=== PATIENT | female | born 1955 | race Caucasian/White ===

== ENCOUNTER 2016-11-04 16:53 | Emergency (ER) | payer OTHER ==
[~2016-11-04] VITALS: Ht 152.4 cm; Wt 98.4 kg
[~2016-11-04 16:53] MED LIST: ADIPEX-P37.5 MG PO; ADVAIR HFA 230/1 AER INH; AMBIEN10 M1 PO; AMBIEN10 MG PO; AMLODIPINE BESYL5 MG PO; AMOXICILLIN500 MG PO; ANORO ELLIPTA1 POW IH; ANTIVERT/2525 M1 PO; ASACOL HD800 M1 PO; AUGMENTIN 875-875 MG PO; BIAXIN500 MG PO; BISOPROLOL FUMA1 TA3 PO; BISOPROLOL PO; CARTIA XT240 MG PO; CARTIA XT300 MG PO; CEFADROXIL500 M1 PO; CEPHALEXIN500 M1 PO; CIPRO500 MG PO; CLARITIN10 MG PO; CLONIDINE HCL0.1 M1 PO; CLONIDINE HCL0.2 MG PO; COZAAR100 MG PO; COZAAR50 MG PO; CYCLOBENZAPRINE10 MG PO; CYMBALTA60 M1 PO; CYMBALTA60 MG PO; DALMANE30 MG PO; DAYPRO600 M1 PO; DAYPRO600 MG PO; DIAZEPAM10 M1 PO; DIAZEPAM5 MG PO; DIFLUCAN100 MG PO; DILTIAZEM 24HR300 MG PO; DOXYCYCLINE HY100 M5 PO; DOXYCYCLINE100 M3 PO; DULOXETINE HCL60 MG PO; DUONEB 3 MG/3 ML3 M1 NEB; EES400 MG PO; ELIMITE 5%60 GM T; ESTRAC1 PO; ESTRADIOL1 MG PO; Estrace1 MG PO; FIORICET 325 MG1 TAB PO; FLEXERIL10 MG PO; FLEXERIL5 MG PO; FUROSEMIDE20 M1 PO; GABAPENTIN100 M2 PO; GLUCOTROL XL2.5 MG PO; GLUCOTROL5 MG PO; HCTZ PO; HUMALOG100 U/ML SC; HYDROCODONE BIT1 T11 PO; HYOSCYAMINE0.125 MG PO; INSULIN HUMA100 U/ML IJ; JANUVIA25 MG PO; K-Lyte/Cl25 MEQ PO; LAC-HYDRIN12% TP; LANTUS100 U/ML SC; LASIX20 MG PO; LATU60TA PO; LATU80TA PO; LIDODERM 5% PATC1 EA PO; LOMOTIL 0.025 M1 TA1 PO; LOTRISONE 0.05%15 GM PO; MAPAP325 MG PO; MEDROL DOSEPAK4 MG PO; MUCINEX ER600 MG PO; MYCOLOG CREAM 115 GM PO; NICOTROL 10MG I1 BOX INH; NORCO 10-325 T1 EACH PO; NORCO 325 MG-7.1 TAB PO; NORCO 7.5-3251 EACH PO; NOVOLOG FLEX100 U/ML SC; NULEV0.125 M1 PO; OMEPRAZOLE20 MG PO; ONGLYZA5 MG PO; ORASONE10 MG PO; OXYGEN NAS; OYSTER SHELL CA PO; OYSTER SHELL CA1 TA4 PO; PERCOCET 325 MG1 TA2 PO; PERCOCET 325 MG1 TA7 PO; PHENERGAN W/ DE30 ML PO; PLAVIX75 M1 PO; PRAVACHOL40 MG PO; PREDNICOT10 MG PO; PREDNICOT20 MG PO; PREDNISONE10 MG PO; PREDNISONE20 MG PO; PREDNISONE50 MG PO; PRILOSEC20 MG PO; SINGULAIR10 M1 PO; SINGULAIR10 MG PO; SYMBICORT1 AE1 INH; TANZEUM30 MG SC; THEO-24100 MG PO; THEOPHYLLINE A200 MG PO; TRAZADONE HYDR100 MG PO; TRAZODONE100 MG PO; TRAZODONE150 MG PO; TRICOR145 MG PO; TUSSI-ORGANIDI120 ML PO; ULTRAM50 MG PO; VALIUM10 MG PO; VALTREX1 GM PO; VENTOLIN H0.09 MG/AC IH; VENTOLIN H0.09 MG/AC INH; VENTOLIN0.09 MG/AC IH; VIBRAMYCIN100 MG PO; VICO75300 PO; VICODIN 5-3001 EACH PO; VICODIN 5/500 505 MG PO; VICODIN 500 MG-1 TAB PO; VISTARIL50 MG PO; VITAMIN D50000 IU PO; VITAMINS FOR HA1 CAP PO; VOLTAREN50 M1 PO; ZEBETA10 MG PO; ZETIA10 MG PO; ZIAC 2.5 MG-6.25 MG PO; ZITHROMAX Z PA250 MG PO; ZITHROMAX250 MG PO; ZOFRAN ODT4 MG SL; ZOLOFT100 MG PO; ZYRTEC10 MG PO; [UNRECOGNIZED DRUG - OTHER] PO; [UNRECOGNIZED DRUG - REMARK]
[2016-11-04 17:18] VITALS: BP 129/82
[2016-12-04] MEDS ORDERED: NORCO 5-325 TA1 EACH PO (22:17)
== END 2016-11-04 18:05 | disposition home or self-care (01) ==
LOC: ED 16:53
DX: G89.29 Other chronic pain (principal); M54.42 Lumbago with sciatica, left side; F17.200 Nicotine dependence, unspecified, uncomplicated; Z90.710 Acquired absence of both cervix and uterus; Z90.49 Acquired absence of other specified parts of digestive tract; Z98.890 Other specified postprocedural states; Z96.653 Presence of artificial knee joint, bilateral; Z91.041 Radiographic dye allergy status; Z88.6 Allergy status to analgesic agent; Z88.1 Allergy status to other antibiotic agents; Z88.8 Allergy status to other drugs, medicaments and biological substances

== ENCOUNTER → 2017-01-27 | Outpatient (CLI) | payer OTHER ==
[~2017-01-27] MED LIST changes: +NORCO 5-325 TA1 EACH PO
== END | disposition home or self-care (01) ==
LOC: MAMMO 13:49
DX: Z12.31 Encounter for screening mammogram for malignant neoplasm of breast (principal); M25.511 Pain in right shoulder; R20.0 Anesthesia of skin; Z91.81 History of falling

== ENCOUNTER → 2017-02-04 | Outpatient (CLI) | payer OTHER ==
[~2017-02-04] MED LIST changes: +ATROVENT I0.5 MG/2.1 INH; +BREO ELLIPTA 11 EACH IH; +LEVSIN0.125 M2 PO; +LOTRISONE30 ML PO; +MECLIZINE HCL25 M2 PO; +MULTI VITAMINS1 TAB PO; +NEURONTIN300 MG PO; +Oscal,Oyster S500 MG PO; +ZIAC 5 MG-6.25 MG PO
--- NOTE | ~2017-02-04 | ST ---
[place], [place] EXERCISE STRESS TEST REPORT [id number] UNIT #: [id number] ROOM: DOCTOR: CECELIA STONER MD BIRTHDATE: [birth year] DOS: 02/04/2017 PHARMACOLOGIC STRESS TEST INDICATIONS: Paroxysmal atrial fibrillation and central chest pain. PROCEDURE: The patient was given a rapid infusion of regadenoson 0.4 mg intravenously followed by a saline flush. She experienced no symptoms with the infusion. Her resting heart rate of 77 tarsha to 88. The resting blood pressure of 148/80 fell to 138/72. Her EKG showed sinus rhythm and was a normal tracing throughout the examination. IMPRESSION: 1. Well tolerated infusion of regadenoson. 2. Radionuclide administered 40 seconds after the infusion of regadenoson. Please see the separate myocardial perfusion report regarding the results of the stress test. CECELIA STONER MD CM:STRESS:EXERCISE STRESS TEST REPORT [id number] CECELIA STONER MD
== END | disposition home or self-care (01) ==
LOC: CARD 00:56
DX: I11.0 Hypertensive heart disease with heart failure (principal); I50.9 Heart failure, unspecified; E11.9 Type 2 diabetes mellitus without complications; J44.9 Chronic obstructive pulmonary disease, unspecified; E78.01 Familial hypercholesterolemia; R06.00 Dyspnea, unspecified

== ENCOUNTER 2017-02-18 17:53 | Emergency (ER) | payer OTHER ==
[~2017-02-18] VITALS: Wt 90.7 kg
--- NOTE | ~2017-02-18 | EKG ---
[place], [place] ELECTROCARDIOGRAM REPORT NAME: LIA GIL UNIT #: [id number] ROOM: DOCTOR: CECELIA STONER MD BIRTHDATE: [birth year] DOS: 02/18/2017 TIME: 19:06 Normal sinus rhythm with rightward axis, rate of 86, probable left atrial enlargement, nonspecific T-wave abnormalities, abnormal electrocardiogram. CECELIA STONER MD CM:EKGRPT:ELECTROCARDIOGRAM REPORT [id number] [id number] CECELIA STONER MD
[2017-02-18] MEDS ORDERED: OXYGEN NAS (18:03)
[2017-02-18 19:02] LABS: BASO % 0.2 % (0.0-1.0); EOS % 0.2 % (1.0-4.0); HEMATOCRIT 39.7 % (37.0-47.0); HEMOGLOBIN 12.7 g/dl (12.0-16.0); IG # 0.1 10*3/uL (0.0-0.1); LYMPH # 1.2 10*3/uL (1.3-4.4); LYMPH % 12.2 % (27.0-41.0); MEAN CELL VOLUME 87.4 fl (81.0-99.0); MEAN PLATELET VOLUME 10.2 fl (9.6-12.3); MONO # 0.4 10*3/uL (0.1-1.0); MONO % 3.9 % (3.0-9.0); NEUT # 8.4 10*3/uL (2.3-7.9); PLATELET COUNT AUTOMATED 228 10*3/uL (130-400); RED BLOOD COUNT 4.54 10*6/uL (4.10-5.10); RED CELL DISTRI WIDTH 12.7 % (0-14.5); WHITE BLOOD COUNT 10.1 10*3/uL (4.8-10.8)
[2017-02-18 19:13] LABS: INTERNATIONAL NORM RATIO 0.9 (2.0-3.5)
[2017-02-18 19:19] LABS: ALBUMIN 2.6 gm/dl (3.1-4.5); ALKALINE PHOSPHATASE 123 U/L (45-117); BILIRUBIN, TOTAL 0.2 mg/dl (0.2-1.0); BUN 5 mg/dl (7-24); C-REACTIVE PROTEIN 0.91 MG/DL (0-0.3); CARBON DIOXIDE 38 mmol/L (21-32); CHLORIDE 96 mmol/L (98-107); CKMB 2.7 ng/ml (0.5-3.6); CPK 53 U/L (26-192); EST GLOM FILT AFRICAN AMERICAN > 60 ml/min; GLUCOSE 173 mg/dL (65-99); MAGNESIUM 1.8 mg/dL (1.5-2.1); POTASSIUM 3.9 mmol/L (3.5-5.1); SGOT/AST 14 IU/L (3-35); SGPT/ALT 11 U/L (12-78); SODIUM 143 mmol/L (136-145); TOTAL PROTEIN 6.3 gm/dL (6.4-8.2); TROPONIN I 0.027 ng/ml (<0.045)
[2017-02-18 19:39] VITALS: BP 164/92
[2017-02-18] MEDS ORDERED: DOXYCYCLINE100 M3 PO (20:08)
[2017-02-18] MEDS ORDERED: PREDNISONE10 MG PO (20:08)
== END 2017-02-18 20:19 | disposition left against medical advice (07) ==
LOC: ED 17:53
PROVIDERS: Registered Nurse
DX: G89.4 Chronic pain syndrome (principal); J44.1 Chronic obstructive pulmonary disease with (acute) exacerbation; E11.65 Type 2 diabetes mellitus with hyperglycemia; Z99.81 Dependence on supplemental oxygen; Z87.891 Personal history of nicotine dependence; Z79.4 Long term (current) use of insulin; Z79.899 Other long term (current) drug therapy; Z90.49 Acquired absence of other specified parts of digestive tract; Z88.1 Allergy status to other antibiotic agents; Z88.6 Allergy status to analgesic agent; Z88.8 Allergy status to other drugs, medicaments and biological substances; Z91.041 Radiographic dye allergy status

== ENCOUNTER → 2017-04-02 | Outpatient (CLI) | payer OTHER | END | disposition home or self-care (01) | LOC: RAD 12:53 | DX: J43.9 Emphysema, unspecified (principal); I50.9 Heart failure, unspecified; J45.909 Unspecified asthma, uncomplicated; Z72.0 Tobacco use; Z99.81 Dependence on supplemental oxygen; Z92.0 Personal history of contraception ==

== ENCOUNTER 2017-04-16 19:55 | Emergency (ER) | payer OTHER ==
[~2017-04-16] VITALS: Ht 152.4 cm; Wt 104.3 kg
[2017-04-16 20:17] VITALS: BP 149/79
== END 2017-04-16 21:26 | disposition home or self-care (01) ==
LOC: ED 19:55
DX: S30.0XXA Contusion of lower back and pelvis, initial encounter (principal); G89.29 Other chronic pain; M19.90 Unspecified osteoarthritis, unspecified site; J44.9 Chronic obstructive pulmonary disease, unspecified; E78.5 Hyperlipidemia, unspecified; E11.65 Type 2 diabetes mellitus with hyperglycemia; Z79.4 Long term (current) use of insulin; I11.0 Hypertensive heart disease with heart failure; I50.32 Chronic diastolic (congestive) heart failure; F17.200 Nicotine dependence, unspecified, uncomplicated; Z79.899 Other long term (current) drug therapy; Z91.041 Radiographic dye allergy status; Z88.1 Allergy status to other antibiotic agents; Z88.6 Allergy status to analgesic agent; Z88.8 Allergy status to other drugs, medicaments and biological substances; W18.39XA Other fall on same level, initial encounter; Y93.89 Activity, other specified; Y92.89 Other specified places as the place of occurrence of the external cause; Y99.8 Other external cause status

== ENCOUNTER 2017-04-22 18:35 | Emergency (ER) | payer OTHER ==
[~2017-04-22] VITALS: Ht 152.4 cm; Wt 104.3 kg
[2017-04-22 18:39] VITALS: BP 108/53
[2017-04-22] MEDS ORDERED: CLINDAMYCIN HC300 MG PO (21:06)
== END 2017-04-22 21:16 | disposition home or self-care (01) ==
LOC: ED 18:35
DX: L03.116 Cellulitis of left lower limb (principal); Z90.49 Acquired absence of other specified parts of digestive tract; Z87.891 Personal history of nicotine dependence; Z96.653 Presence of artificial knee joint, bilateral; Z79.4 Long term (current) use of insulin; Z79.899 Other long term (current) drug therapy; Z88.1 Allergy status to other antibiotic agents; Z88.6 Allergy status to analgesic agent; Z91.041 Radiographic dye allergy status

== ENCOUNTER → 2017-05-21 | Outpatient (CLI) | payer OTHER ==
[~2017-05-21] MED LIST changes: +CLINDAMYCIN HC300 MG PO
== END | disposition home or self-care (01) ==
LOC: RAD 08:57
DX: M47.817 Spondylosis without myelopathy or radiculopathy, lumbosacral region (principal); M43.8X4 Other specified deforming dorsopathies, thoracic region

== ENCOUNTER → 2017-06-06 | Outpatient (CLI) | payer OTHER ==
--- NOTE | ~2017-06-06 | PR ---
[place], [place] PROGRESS NOTE NAME: LIA IGL UNIT #: [id number] ROOM: DOCTOR: AL CALLEJAS DPM BIRTHDATE: [birth year] DOS: 06/06/2017 SUBJECTIVE: This is a new patient to me, but she had been seen at [facility] previously. She is here for a new complaint. She had a fall several days ago on her left leg. She hit a chest of drawers. Since then, she has not been applying any sort of dressing to the area. She has been keeping it open, stated there was a lot of drainage and some blood when the initial injury occurred. Currently, she has multiple wounds on the left lower leg, first of which is left knee, which measures 4.7 cm x 3.5 cm x 0.1 cm. This is eschar and devitalized tissue covered. It was debrided through subcutaneous with 15 blade to remove all devitalized and necrotic tissue. The patient tolerated this procedure well. Post-debridement measurements are the same. Second wound, left lower leg proximal, measures 3.3 cm x 2.2 cm x 0.1 cm. No debridement was performed at this wound. The base is superficial, beefy red. On the left lower leg wound, there is a measurement of 3.9 cm x 3.4 cm x 0.1 cm. Again, this area is beefy red and no debridement was performed in this region. Left lower leg distal wound is 1.3 cm x 1.5 cm x 0.5 cm. This wound is also clear, no debridement was performed. No signs of infection or other abnormalities noted. IMPRESSION: Traumatic ulcerations as described above on the left lower leg, all stable and uninfected. PLAN: 1. Evaluate. 2. We will use Adaptic, Aquacel Ag or Maxorb Ag to the areas with dry dressing, changed every day. The [facility] 1 week for this complaint. She is to call if any problems arise in the meantime. AL CALLEJAS DPM CM:PNTRANS [id number] AL CALLEJAS DPM 06/06/17 1321 interface
== END | disposition home or self-care (01) ==
LOC: WOUNDCARE 10:09
DX: I87.332 Chronic venous hypertension (idiopathic) with ulcer and inflammation of left lower extremity (principal); L97.222 Non-pressure chronic ulcer of left calf with fat layer exposed

== ENCOUNTER 2017-06-22 00:12 | Inpatient (IN) | payer OTHER ==
[2017-06-22] VITALS (9 sets, daily range): BP systolic 115–136; BP diastolic 56–107
[~2017-06-22] VITALS: Ht 152.4 cm; Wt 106.1 kg
--- NOTE | ~2017-06-22 | PR ---
[place], [place] PROGRESS NOTE NAME: LIA GIL UNIT #: [id number] ROOM: 401 DOCTOR: JOHN GRANDA DO BIRTHDATE: [birth year] DOS: 06/26/2017 SUBJECTIVE: The patient was seen and evaluated today with Dr. Olvera. The patient is alert, awake, responsive. No nausea, vomiting, diarrhea, lightheadedness, dizziness, or chest pain. The patient's shortness of breath has resolved. The patient denies any other complaints. OBJECTIVE: VITAL SIGNS: Temperature 97.8, pulse 81, respiratory rate 20, blood pressure 152/81, pulse ox is 99 on 3 liters nasal cannula. HEENT: Shows no change. NECK: Supple. CARDIOVASCULAR: S1, S2 audible. LUNGS: Moderate decrease in breath sounds. No wheezing or crackles noted. ABDOMEN: Soft, nontender, nondistended. EXTREMITIES: Shows mild trace edema. LABORATORY DATA: CBC: White cell count of 8.2, hemoglobin of 11.7. Glucose of 210, BUN 23, creatinine 0.89. ASSESSMENT: 1. Acute tracheobronchitis with chronic respiratory failure. 2. Chronic obesity. 3. Metabolic encephalopathy, resolved. 4. History of nicotine dependence. 5. Type 2 diabetes with hyperglycemia. 6. Diastolic congestive heart failure, resolving. PLAN: 1. The patient can be discharged on doxycycline 100 mg b.i.d. for 5 days. 2. Continue usual and supportive care. SNF consult. JOHN GRANDA DO [place], [place] PROGRESS NOTE NAME: LIA GIL UNIT #: [id number] ROOM: 401 DOCTOR: JOHN GRANDA DO BIRTHDATE: [birth year] NIGHAT OLVERA MD CM:PNTRANS [id number] JOHN GRANDA DO 06/26/17 1028 interface
--- NOTE | ~2017-06-22 | PR ---
[place], [place] PROGRESS NOTE NAME: LIA GIL UNIT #: [id number] ROOM: 401 DOCTOR: WADE FISCHER MD,NIGHAT BIRTHDATE: [birth year] DOS: 06/24/2017 PULMONARY FOLLOWUP SUBJECTIVE: The patient has been noted comfortable at this time. Shortness of breath and other symptom has been gradually subsiding. There were no symptoms of chest pain. She has not used the BiPAP over the last 24 hours. She does not wish to use the BiPAP. Denies symptoms of chest pain. Edema of lower extremity the patient has been still noted, but decreased. OBJECTIVE: VITAL SIGNS: Normal temperature, respiratory rate 20, heart rate 94, blood pressure 127/67. Intake for this patient was recorded as 2400 mL over 4600 mL, negative fluid balance over 2 liters. The pulse oxygen saturation for the patient was noted as 99% saturation on 2 liters nasal cannula. HEENT: Examination shows no new change. NECK: Supple. CARDIOVASCULAR: S1, S2 audible. LUNGS: Show moderate decreased breath sounds noted in the lungs bilaterally. Scattered wheezing. ABDOMEN: Soft, nontender. Bowel sounds present. EXTREMITIES: Noted as [id number] edema still noted in the lower extremities. LABORATORY DATA: BMP this morning, glucose 303. BUN and creatinine was normal. Sodium 134. Carbon dioxide 36. CBC was noted as a WBC count of 8.1, hemoglobin 11.1, hematocrit 35.5 with a platelet count is normal. Echocardiogram that was done on 06/23/2017 reported by the radiologist as evidence of normal left ventricle symmetrical wall motion, grade 2 pseudonormalization filling dynamics the patient was also described. Left ventricular ejection fraction was noted as normal with findings of LVH. IMPRESSION: 1. The patient was currently noted with resolving acute on chronic hypoxic respiratory failure, history of chronic hypoxia. 2. Acute congestive heart failure with diastolic dysfunction, resolving as well. 3. Type 2 diabetes mellitus and hyperglycemia. PLAN OF MANAGEMENT: Discontinue the dose of Solu-Medrol to 30 mg Solu-Medrol b.i.d. Discontinue the BiPAP because of noncompliance. Titrate oxygen 90% or greater. Continue diuretic therapy. Monitoring BUN and creatinine and other labs. Usual care. All other supportive therapy, plan of management, care and treatments. ADDENDUM The patient was independently seen and examined, [id number] encounter. History and physical examination confirmed. The level was confirmed. Decision and management were personally made. Any changes in the treatment personally [place], [place] PROGRESS NOTE NAME: LIA GIL UNIT #: [id number] ROOM: [facility] DOCTOR: NIGHAT GARCIA MD BIRTHDATE: [birth year] done. The note done by the medical dermatologist was approved as well. NIGHAT OLVERA MD CM:FERNIE [id number] NIGHAT FISCHER MD 06/25/17 0105 interface
--- NOTE | ~2017-06-22 | EKG ---
[place], [place] ELECTROCARDIOGRAM REPORT NAME: LIA GIL UNIT #: [id number] ROOM: [facility] DOCTOR: WADE FISCHER MD,NIGHAT BIRTHDATE: [birth year] DOS: 06/22/2017 TIME: 2:01 a.m. Normal sinus rhythm were noted with a heart rate of 92 beats per minute. Nonspecific ST-T changes were noted. Nonspecific intraventricular conduction delay, the patient was also noted. Poor R wave progression was noted. NIGHAT OLVERA MD CM:EKGRPT:ELECTROCARDIOGRAM REPORT 1200 1801 NIGHAT FISCHER MD
--- NOTE | ~2017-06-22 | PR ---
[place], [place] PROGRESS NOTE NAME: LIA GIL UNIT #: [id number] ROOM: 401 DOCTOR: NIGHAT GARCIA MD BIRTHDATE: [birth year] DOS: 06/26/2017 SUBJECTIVE: This progress note done by the biomedical engineering technologist. The patient was independently seen and examined with [id number] encounter. Physical examination performed. History was confirmed. The labs were reviewed. Agreed with the note which was done by the biomedical engineering technologist as well. The patient has been showing reduction of the respiratory symptoms, still noted with severe debility. She would like to be discharged home. She refused to go to long term facility, understanding the risks and benefits of such decision. OBJECTIVE: VITAL SIGNS: She remains afebrile. The blood pressure noted mildly elevated at 152/81. CHEST: Auscultation was noted with minimal wheezing. ABDOMEN: Soft and obese. LABORATORY DATA: BMP: Glucose 255. CO2 was 42. Chloride of 90. Respiratory limited ____ this patient was noted as negative. IMPRESSION: 1. The patient who has been noted with gradual resolution of the acute on chronic hypercapnic and hypoxic with acute on chronic hypoxic respiratory failure with history of chronic hypoxic respiratory failure. 2. Metabolic alkalosis secondary to chronic hypercarbia. 3. Resolving tracheobronchitis, progressive. 4. Severe debility secondary to underlying acute exacerbation of chronic obstructive pulmonary disease. 5. Moderately uncontrolled diabetes mellitus. PLAN OF TREATMENT: If the patient wishes to be discharged home today, she could be assessed for home discharge with home health nursing staff. Physical therapy and occupation therapy arrangement. We will use a tapering dose of prednisone and oral antibiotics. [place], [place] PROGRESS NOTE NAME: LIA GIL UNIT #: [id number] ROOM: 401 DOCTOR: NIGHAT GARCIA MD BIRTHDATE: [birth year] NIGHAT OLVERA MD CM:PNTRANS [phone] NIGHAT FISCHER MD 06/26/171831 interface
--- NOTE | ~2017-06-22 | PR ---
[place], [place] PROGRESS NOTE NAME: LIA GIL UNIT #: [id number] ROOM: 401 DOCTOR: NIGHAT GARCIA MD BIRTHDATE: [birth year] DOS: 06/25/2017 SUBJECTIVE: The patient was independently seen [id number] in encounter today. Assessment was performed, symptoms were confirmed and physical examination performed. The labs were reviewed. The assessment and management had been changed. The patient was personally made for this patient for today's visit. The note done by the medical cash poster, was approved. The patient has been transferred to telemetry floor at this time, noted with reduction of respiratory symptom. She was still noted with generalized or debility with inability to ambulate by herself. She was transferring from bed to the chair with the help of physical therapy, which has been noted ongoing. PHYSICAL EXAMINATION: VITAL SIGNS: Temperature noted as normal, respiratory rate of 18, heart rate 82, blood pressure 154/74. Pulse oxygen saturation 3 liters 100% saturation. RESPIRATORY: The auscultation of the chest was noted with mild to moderate decreased breath sounds, mild expiratory wheezing. There were no crackles. ABDOMEN: Soft, nontender and obese. EXTREMITIES: Still shows mild edema. LABORATORY DATA: CBC essentially noted with mild anemia for today's lab. The BMP noted glucose 279 with a CO2 of 37. IMPRESSION: The patient with resolving acute on chronic hypoxic respiratory failure, chronic hypercapnia with acute exacerbation of chronic obstructive pulmonary disease, severe or debility with decreased ambulation. The patient was recommended about assessment for the correction facility for rehabilitation purposes prior to final home discharge consideration. She was resisting to consider that. I would like to be discharged home. From the pulmonary standpoint, arrangement of discharge could be made for the patient in the next 24 hours to the home if that is the patient where she is, which is not going to be a better option. PLAN OF TREATMENT: Other treatment plan to be continued previously in progress. [place], [place] PROGRESS NOTE NAME: LIA GIL UNIT #: [id number] ROOM: 401 DOCTOR: NIGHAT GARCIA MD BIRTHDATE: [birth year] NIGHAT OLVERA MD CM:PNTRANS 6 [phone] NIGHAT FISCHER MD 06/26/17219 interface
--- NOTE | ~2017-06-22 | CON ---
[place], [place] REPORT OF CONSULTATION NAME: LIA GIL UNIT #: [id number] ROOM: [facility] DOCTOR: NIGHAT GARCIA MD BIRTHDATE: [birth year] DOS: 06/22/2017 PULMONARY CONSULTATION EVALUATION AND MANAGEMENT CONSULTATION REQUESTED BY: Hospitalist services. REASON FOR CONSULTATION: Assessment of the acute respiratory failure. HISTORY OF PRESENT ILLNESS: A 61-year-old white female known to me with past history of COPD and others, presented to the hospital Emergency Room and admitted to the hospital early this morning. The patient stated that she has been developing progressive increased shortness of breath, which was occurring with minimal exertion, using her oxygen supplementation at home. She was also noted with progressive cough with chest congestion and small amount of sputum expectoration at times. The patient denies symptoms of chest pain or hemoptysis. Wheezing with the patient occurring progressively with the chest tightness. The patient came into the Emergency Room as the patient fell down at home. She has been assessed in the Emergency Room for unresponsiveness. The diagnosis of acute cerebral infarction was excluded. She has been currently admitted to the Intensive Care Unit for further medical management. She was noted significant shortness of breath with wheezing as well. Denies any symptoms of chest pain at this time. REVIEW OF SYSTEMS: CONSTITUTIONAL: The patient has been noted symptoms of fatigue and tiredness. Denies any symptoms of fever or chills. EYES: Denies any burning, redness, or tenderness. EARS, NOSE, THROAT: No sore throat, hoarseness, otalgia, postnasal drainage. CARDIOVASCULAR: The patient was noted with edema of the lower extremities, which has noted recently worsened. Denies any symptoms of pain in the lower extremity. Denies symptoms of palpitations or anginal pain. GASTROINTESTINAL: Denies dysphagia, nausea, vomiting, diarrhea, abdominal pain, hematemesis, melena, or abnormal weight loss history recently. SKIN: Some area of bruising of the skin noted, most likely medication related, but there were no abnormal rashes or lesions. MUSCULOSKELETAL: Denies acute joint pain, redness, or tenderness. GENITOURINARY: Denies dysuria, suprapubic pain, hematuria or flank pain. CENTRAL NERVOUS SYSTEM: No dizziness, headache, diplopia, syncopal episodes or seizures. Remaining systems were reviewed and they were noted all negative. PAST MEDICAL HISTORY: Noted with: 1. History of centrilobular emphysema. 2. Chronic hypoxic respiratory failure with use of oxygen 3 L p.m. 3. History of ulcerative colitis and Crohn's disease. 4. Essential hypertension. 5. Moderate obesity. 6. Anxiety disorder. 7. History of neurotic depression. [place], [place] REPORT OF CONSULTATION NAME: LIA GIL UNIT #: [id number] [place] [facility] [place]CTOR: BEAU GARCIA MDM BIRTHDATE: [birth year] 8. History of uterine cancer. 9. Type 2 diabetes mellitus. 10. Osteoarthritis. PAST SURGICAL HISTORY: Noted as: 1. Complete hysterectomy in 1996. 2. Cholecystectomy. 3. Bilateral total knee replacement. 4. Appendectomy. 5. Removal of ganglion cyst of the left wrist. 6. Colonoscopy. 7. Fiberoptic bronchoscopy which was therapeutic in the past. 8. Repair of the tendon or the ankles. SOCIAL HISTORY: The patient is , does live with boyfriend. She has 4 children. Smoking noted since age of 88 years old with intermittent continued tobacco use, different amount, half pack to a pack of cigarettes per day. There was no history of alcohol or illicit drug use. FAMILY HISTORY: The patient's father at the age of 75 years with complication of heart problem. Mother at the age of 70+ years old with complications related to GI cancer. MEDICATIONS: Current administered medications noted use of Protonix, IV Lasix, potassium chloride, sliding scale insulin coverage, IV Solu-Medrol 60 mg b.i.d., Lovenox for DVT prophylaxis, DuoNeb q.4h., IV Rocephin, Ambien, azithromycin, and other p.r.n. medications were administered. DRUG ALLERGIES: Noted: 1. IVP DYE. 2. LISINOPRIL. 3. PAXIL. 4. TRAMADOL. 5. TORADOL. 6. MOXIFLOXACIN. 7. LEXAPRO. 8. LYRICA. PHYSICAL EXAMINATION: GENERAL: A 61-year-old female has been noted currently awake and alert. VITAL SIGNS: Height of 5 feet 4 inches, weight of 234 pounds, BMI 45. The vital signs for the patient which has been recorded showed normal temperature since admission, respiratory rate 16-22, heart rate 65-70, blood pressure 115/75-136/58. Pulse oxygen saturation of the patient noted on 3 liters nasal cannula 94% saturation. HEENT: Examination shows head was atraumatic. Eyes nonicterus. NECK: Supple. CARDIOVASCULAR: S1, S2 audible. LUNGS: Diffuse expiratory wheezing in the lungs were noted bilaterally. There were no crackles heard. [place], [place] REPORT OF CONSULTATION NAME: LIA GIL UNIT #: [id number] [place]OM: [facility] DOCTOR: WADE FISCHER MD,NIGHAT BIRTHDATE: [birth year] ABDOMEN: Soft, nontender. EXTREMITIES: Shows 2-3+ pitting edema at this time. SKIN: Shows small area of bruising, most likely related to medications. There were no abnormal rashes or lesions. CENTRAL NERVOUS SYSTEM: Cranial nerves 2-12 intact. No focal deficits. MUSCULOSKELETAL: There were no acute deformities seen. LABORATORY DATA: Lactic acid on 06/22/2017 was 2.5. CBC on 06/22/2017, hemoglobin 11.5, hematocrit 35.6, WBC count normal, platelet count was normal. The PT/INR was noted as normal on 06/22/2017. CMP on 06/22/2017, normal BUN and creatinine. Potassium 2.7. Carbon dioxide 34. Arterial blood gas; pH is 7.37, pCO2 of 62, pO2 of 40.9 on [address] scan of the head this morning was done for this patient was noted without any acute intracranial pathologies. The urine drug screen was noted positive for benzodiazepines and opiates. The troponin for the patient noted normal. Chest x-ray 1 view does not show any acute pulmonary pathology. CT scan of the chest without contrast, which was done this morning was personally reviewed, shows 6 mm nodule noted in the ____ of the right upper lung for this patient. The nodule was not seen as the CT scan of 01/26/2015 was personally reviewed and noted to be absent. Another 2 mm nodule for the patient was described in the right lower lobe and other 2 mm nodule was described in the left upper lobe as well. Again, the nodule of the left upper lobe and the right lower lobe were all noted new as well. IMPRESSION: The patient who has been currently admitted to the hospital noted with: 1. Acute on chronic hypoxic respiratory failure as a result of acute exacerbation of chronic obstructive pulmonary disease. 2. Chronic nicotine dependence. 3. History of cancer of the uterus many years ago for this patient without any known recurrence of the current nodules which are present. The differential diagnosis would include possibility of metastatic cancer for this patient versus a benign finding such as intraparenchymal lymph nodes. 4. History of chronic morbid obesity as well. 5. Severe hyperkalemia was also noted as well. 6. Possibility of acute congestive heart failure with diastolic or systolic dysfunction needs to be further defined with additional assessment. 7. Anxiety disorder and depression. PLAN OF MANAGEMENT: At this time, the patient has been started on intravenous Solu-Medrol and will be continued on same dose with frequent bronchodilators. Because of the current severe wheezing and other respiratory difficulty, she was suggested to use the BiPAP. Initially, the patient refused to use the BiPAP and later on would like to use it. She will be started on BiPAP of 14/8. Maintain the saturation with that 92%. The BiPAP will be used intermittently during the daytime to stabilize the respiratory status and continue at nighttime. Because of suspicion of obstructive sleep apnea disorder, the BiPAP would also help for that reason. Tobacco cessation was addressed with the patient. The patient is getting already diuretic therapy. The supplementation potassium noted in progress. Additional treatment changes will be suggested based on the progression of the illness. Obtain the sputum for Gram stain and culture for [place], [place] REPORT OF CONSULTATION NAME: LIA GIL UNIT #: [id number] [place]: [facility] DOCTOR: NIGHAT GARCIA MD BIRTHDATE: [birth year] this patient for the tracheobronchitis. Pulmonary nodule assessment to be done with a followup CT scan of the chest to be done in about 3-6 months for reassessment of pulmonary nodules in progression. If there is a localized infection, it should resolve. Other supportive therapy, plan of management and care. Usual treatment, other supportive plan of management and therapies. Thanks for allowing me to participate in the care of this patient. NIGHAT OLVERA MD CM:CONSTR:REPORT OF CONSULTATION 1543 06/23/17 1342 interface
--- NOTE | ~2017-06-22 | PR ---
[place], [place] PROGRESS NOTE NAME: LIA GIL UNIT #: [id number] ROOM: [facility] DOCTOR: NIGHAT GARCIA MD BIRTHDATE: [birth year] DOS: 06/23/2017 SUBJECTIVE: She has been noted without any acute distress at the present time. She denies symptoms of chest pain or any abdominal pain. The respiratory symptoms had been decreased yesterday. She has used the BiPAP that was ordered yesterday resulting in reduction in respiratory symptoms. This morning, she was seen, she was sitting on the chair. OBJECTIVE: VITAL SIGNS: Showed normal temperature, respiratory rate 20, heart rate 94, blood pressure 146/74. Pulse oxygen saturation noted on 3 L nasal canula 98% saturation. HEENT: Showed no acute change. NECK: Supple. CARDIOVASCULAR: S1, S2 audible. LUNGS: The patient was noted without any wheezing or crackles at the present time. ____ noted generally diminished bilaterally. ABDOMEN: Soft and nontender. LABORATORY DATA: The patient's CMP today, glucose 300, BUN and creatinine normal, and sodium 134. CBC, mild anemia, otherwise normal. IMPRESSION: 1. The patient who has been currently noted with reduction and improvement in the respiratory symptoms, with acute tracheobronchitis as well as acute on chronic hypoxic respiratory failure. 2. Chronic obesity. 3. Change in mental status, resolving. 4. History of nicotine dependence. PLAN OF TREATMENT: Continue use of BiPAP with oxygen supplementation, bronchodilators, and use of corticosteroids. Other supportive therapy, plan and management and care. Additional treatment changes need to be made for the patient based on the progression of the illness. [place], [place] PROGRESS NOTE NAME: LIA GIL UNIT #: [id number] ROOM: [facility] DOCTOR: NIGHAT GARCIA MD BIRTHDATE: [birth year] NIGHAT OLVERA MD CM:PNTRANS [phone] NIGHAT FISCHER MD 06/24/17249 interface
--- NOTE | ~2017-06-22 | PR ---
[place], [place] PROGRESS NOTE NAME: LIA GIL UNIT #: [id number] ROOM: 401 DOCTOR: JOHN GRANDA DO BIRTHDATE: [birth year] DOS: 06/24/2017 SUBJECTIVE: The patient was seen and evaluated today. The patient is alert, awake and responsive. No nausea, vomiting, diarrhea, lightheadedness, dizziness or chest pain. The patient states that her shortness of breath has improved since yesterday. In the patient's rest, change in mental status has resolved. The patient knows the location, month, date. The patient states she did not use BiPAP last night. The patient states she continues to have cough with yellow sputum. OBJECTIVE: VITAL SIGNS: Temperature 98.3, pulse 94, respiratory rate 20, blood pressure 127/67, pulse ox 99% on 3 liters nasal cannula. HEENT: Showed no changes. NECK: Supple. CARDIOVASCULAR: S1, S2 audible. LUNGS: There was no wheezing or crackles at this time. Lungs were noted diminished bilaterally at the bases. ABDOMEN: Soft, nontender. LABORATORY DATA: White cell count of 8.1, hemoglobin 11.1, platelet count 186. Chemistry: Sodium 134, potassium 4.1, creatinine 0.85, BUN 17. IMPRESSION: 1. Acute tracheobronchitis with chronic hypoxic respiratory failure. 2. Chronic obesity. 3. Metabolic encephalopathy, resolved. 4. History of nicotine dependence. PLAN: 1. Continue the use of BiPAP. 2. Continue bronchodilator, corticosteroids and antibiotics. 3. Continue to maintain oxygen above 92%. JOHN GRANDA DO [place], [place] PROGRESS NOTE NAME: LIA GIL UNIT #: [id number] ROOM: 401 DOCTOR: JOHN GRANDA DO BIRTHDATE: [birth year] NIGHAT OLVERA MD CM:PNTRANS [id number] JOHN GRANDA DO 06/25/17 0707 interface
--- NOTE | ~2017-06-22 | PR ---
[place], [place] PROGRESS NOTE NAME: LIA GIL UNIT #: [id number] ROOM: 401 DOCTOR: JOHN GRANDA DO BIRTHDATE: [birth year] DOS: 06/25/2017 SUBJECTIVE: The patient was seen and evaluated today. The patient is alert, awake and responsive. No nausea, vomiting, diarrhea, lightheadedness, dizziness, or chest pain. The patient continues to be short of breath, but states is improved from other days. The patient denies any other complaints. OBJECTIVE: VITAL SIGNS: Temperature 98, pulse 82, respiratory rate 18, blood pressure 154/74, pulse ox 100% on 3 liters nasal cannula. HEENT: Shows no change. NECK: Supple. CARDIOVASCULAR: S1, S2 audible. LUNGS: Decreased breath sounds at the bases. No wheezing or rhonchi appreciated. ABDOMEN: Soft, nontender, nondistended. LABORATORY DATA: White cell count of 8.2, hemoglobin of 11.7, platelet count of 210. Sodium of 134, chloride of 89, BUN of 20, creatinine of 0.85. ASSESSMENT: 1. Acute tracheobronchitis with chronic respiratory failure. 2. Chronic obesity. 3. Metabolic encephalopathy, resolved. 4. History of nicotine dependence. 5. Type 2 diabetes and hyperglycemia. 6. Acute congestive heart failure with diastolic dysfunction, resolving. PLAN: Management. Continue Solu-Medrol to 30 b.i.d. Continue to monitor. Titrate oxygen 90% or greater. Usual care and supportive therapy, SNF consult. JOHN GRANDA DO [place], [place] PROGRESS NOTE NAME: LIA GIL UNIT #: [id number] ROOM: 401 DOCTOR: JOHN GRANDA DO BIRTHDATE: [birth year] NIGHAT OLVERA MD CM:PNTRANS [id number] JOHN GRANDA DO 06/25/17 1342 interface
[~2017-06-22 00:12] MED LIST changes: +LANTUS SOL100 UNIT/1 SC; -LOTRISONE30 ML PO; +LOTRISONE30 ML T; +NEURONTIN100 MG PO; -NEURONTIN300 MG PO; +ZIAC 10-6.25 M1 EACH PO; -ZIAC 5 MG-6.25 MG PO
[2017-06-22 01:41] LABS: BASO % 0.3 % (0.0-1.0); EOS % 0.3 % (1.0-4.0); HEMATOCRIT 35.6 % (37.0-47.0); HEMOGLOBIN 11.5 g/dl (12.0-16.0); LYMPH # 1.3 10*3/uL (1.3-4.4); LYMPH % 13.1 % (27.0-41.0); MEAN CORPUSCULAR HGB 29.4 pg (27.0-31.0); MEAN CORPUSCULAR HGB CONC 32.3 g/dl (33.0-37.0); MEAN PLATELET VOLUME 11.9 fl (9.6-12.3); MONO # 0.7 10*3/uL (0.1-1.0); MONO % 7.1 % (3.0-9.0); NEUT # 7.6 10*3/uL (2.3-7.9); NEUT % 78.8 % (47.0-73.0); PLATELET COUNT AUTOMATED 170 10*3/uL (130-400); RED BLOOD COUNT 3.91 10*6/uL (4.10-5.10); RED CELL DISTRI WIDTH 13.1 % (0-14.5); WHITE BLOOD COUNT 9.6 10*3/uL (4.8-10.8)
--- NOTE | 2017-06-22 01:44 | NUR ---
LAB CALLED WITH CRITICAL VALUE OF LACTIC ACID 2.5. NOTIFIED.
[2017-06-22 01:50] LABS: INTERNATIONAL NORM RATIO 0.9 (2.0-3.5)
[2017-06-22 02:02] LABS: ALBUMIN 2.5 gm/dl (3.1-4.5); ALKALINE PHOSPHATASE 106 U/L (45-117); BUN 7 mg/dl (7-24); CHLORIDE 96 mmol/L (98-107); CREATININE 0.82 mg/dL (0.55-1.02); MAGNESIUM 2.1 mg/dL (1.5-2.1); POTASSIUM 2.7 mmol/L (3.5-5.1); SGOT/AST 27 IU/L (3-35); SGPT/ALT 18 U/L (12-78); SODIUM 137 mmol/L (136-145); TROPONIN I 0.028 ng/ml (<0.045)
[2017-06-22 02:28] LABS: ABG BASE EXCESS 8.8 mmol/L (-2.0-2.0); ABG HCO3 35.3 mmol/l (22-26); ABG O2 SATURATION 71.5 % (95-97); ARTERIAL BLOOD GAS PH 7.375 (7.35-7.45); ARTERIAL BLOOD GAS PO2 40.9 mmHg (80-90)
[2017-06-22 02:56] LABS: BILIRUBIN NEGATIVE (NEGATIVE); BLOOD NEGATIVE (NEGATIVE); CLARITY SL CLOUDY (CLEAR); COLOR YELLOW (YELLOW); GLUCOSE NEGATIVE (NEGATIVE); KETONE NEGATIVE (NEGATIVE); LEUKO ESTERASE NEGATIVE (NEGATIVE); NITRITE NEGATIVE (NEGATIVE); SPECIFIC GRAVITY <= 1.005 (1.005-1.030); UROBILINOGEN 0.2 E.U./dl (0.2-1.0)
[2017-06-22 03:04] LABS: BACTERIA TRACE; EPITHELIAL CELLS 0-2
[2017-06-22 03:05] LABS: URINE AMPHETAMINES < 1000 (1000ng/ml); URINE BARBITURATES < 200 (200ng/ml); URINE BENZODIAZEPINES > 200 (200ng/ml); URINE CANNABINOIDS (THC) < 50 (50ng/ml); URINE COCAINE < 300 (300ng/ml); URINE METHADONE < 300 (300ng/ml); URINE OPIATES > 300 (300ng/ml)
[2017-06-22 03:06] LABS: URINE PHENCYCLIDINE < 25 (25ng/ml)
--- NOTE | 2017-06-22 07:07 | NUR ---
ASSESSED PATIENT AT THIS TIME. STATES SHE IS FEELING BETTER. PT IS ON BIPAP, TOLERATING IT WELL. PT NEEDS TO URINATE AT THIS TIME. WISHES TO GET UP TO THE BEDSIDE COMMODE. PT HELPED TO BEDSIDE COMMODE WITH THE HELP OF MYSELF AND ANOTHER RN. TRANSFERRED WELL. NO COMPLAINTS. WAS ABLE TO PUT OUT URINE, CHANGED BEDSHEETS. PT PLACED BACK IN THE BED. STILL NO COMPLAINTS. DOES NOT APPEAR MORE SOB. DOES NOT COMPLIAN OF SOB. REMAINS ON THE BIPAP. VSS THROUGHOUT TRANSFERS.
--- NOTE | 2017-06-22 07:33 | NUR ---
Amy SALES COMPLETE AT THIS TIME.
--- NOTE | 2017-06-22 08:15 | NUR ---
A 61, admitted to [facility], under the services of GRIFFIN Serrano DO with a diagnosis of ACUTE RESPIRATORY FAILURE,MILD ANEMIA, AND FALL AT HOME. Chief complaint is FELL AT HOME. Patient arrived via stretcher from ER. Monitor applied. Initial assessment completed. Vital signs taken and recorded. GRIFIFN SERRANO DO notified of admission to the unit. Orders received. See assessment for past medical history, medications and allergies. Patient and/or family oriented to unit. [facility] visitation policy reviewed. Clothing/patient valuable form completed. BRUCE WARD
[2017-06-22] MEDS ORDERED: ZETIA10 MG PO (14:17)
[2017-06-22] MEDS ORDERED: NORVASC5 MG PO (14:59)
[2017-06-22] MEDS ORDERED: DAYPRO600 M1 PO (15:00)
[2017-06-22] MEDS ORDERED: ZOLOFT100 MG PO (15:06)
[2017-06-22] MEDS ORDERED: VALIUM5 MG PO (15:15)
[2017-06-22] MEDS ORDERED: TRAZADONE HYDR100 MG PO (15:26)
[2017-06-22] MEDS ORDERED: ADIPEX-P37.5 MG PO (15:29)
[2017-06-22] MEDS ORDERED: SYMBICORT INH (15:35)
[2017-06-22] MEDS ORDERED: VICO75300 PO (15:40)
--- NOTE | 2017-06-22 15:44 | NUR ---
NOTIFIED OF HOME MED RECC BEING COMPLETED FROM LIST PATIENT BROUGHT FROM HOME.
--- NOTE | 2017-06-22 20:40 | NUR ---
PT. RESTING IN BED, UP TO BSC WITH ASSIST. SLIGHT SOB NOTED AT REST, INCREASING WITH EXERTION. PT. STATES THIS IS NORMAL FOR HER. LUNGS DIMINISHED BILAT, PULSE OX 100% ON 3L NC. ABDOMEN SOFT, NORMO. 1-2+ BLE EDEMA, OPEN BLISTERS NOTED TO LEFT LOWER LEG. KRISTEN MAGANA RN
--- NOTE | 2017-06-22 22:57 | NUR ---
PT. GIVEN DYSREL ORDERED AT 2126 AND NORCO AT 2204 FOR COMPLAINTS OF BACK PAIN. CURRENTLY SLEEPING, ABOVE EFFECTIVE.
[2017-06-23] VITALS: BP 125/71
[2017-06-23 04:00] VITALS: BP 127/76
--- NOTE | 2017-06-23 04:27 | NUR ---
PT. GIVEN [place] FOR COMPLAINTS OF BACK PAIN. KRISTEN MAGANA RN
[2017-06-23 04:51] LABS: HEMATOCRIT 35.8 % (37.0-47.0); HEMOGLOBIN 11.3 g/dl (12.0-16.0); MEAN CORPUSCULAR HGB CONC 31.6 g/dl (33.0-37.0); MEAN PLATELET VOLUME 11.8 fl (9.6-12.3); PLATELET COUNT AUTOMATED 169 10*3/uL (130-400); RED BLOOD COUNT 3.89 10*6/uL (4.10-5.10); WHITE BLOOD COUNT 8.1 10*3/uL (4.8-10.8)
[2017-06-23 05:10] LABS: ALBUMIN 2.5 gm/dl (3.1-4.5); BUN 13 mg/dl (7-24); CHLORIDE 92 mmol/L (98-107); CREATININE 0.91 mg/dL (0.55-1.02); MAGNESIUM 1.8 mg/dL (1.5-2.1); PHOSPHOROUS 2.1 mg/dL (2.5-4.9); POTASSIUM 3.6 mmol/L (3.5-5.1); SGOT/AST 21 IU/L (3-35); SGPT/ALT 19 U/L (12-78); SODIUM 134 mmol/L (136-145); TOTAL PROTEIN 6.7 gm/dL (6.4-8.2)
[2017-06-23 05:11] LABS: ALKALINE PHOSPHATASE 112 U/L (45-117)
[2017-06-23 05:12] LABS: ACT PARTIAL THROMBO TIME 23.5 SECONDS (20.8-31.5); INTERNATIONAL NORM RATIO 0.9 (2.0-3.5)
[2017-06-23 05:14] LABS: PLATELET SUFFICIENCY NORMAL (NORMAL); TOTAL CELLS COUNTED 100 #CELLS
[2017-06-23 05:15] LABS: POLYCHROMASIA SLIGHT
--- NOTE | 2017-06-23 06:00 | NUR ---
PT. STATED NORCO EFFECTIVE FOR BACK PAIN.
[2017-06-23 07:37] LABS: VITAMIN D, 25-HYDROXY 19.2 ng/mL (30-100)
[2017-06-23 08:00] VITALS: BP 146/74
--- NOTE | 2017-06-23 09:08 | NUR ---
CHANG FOR 10/10 BACK PAIN "ITS ALWAYS A TEN!"
--- NOTE | 2017-06-23 10:00 | NUR ---
BACK PAIN RELIEVED
--- NOTE | 2017-06-23 10:38 | NUR ---
BEDSIDE ECHO COMPLETED
[2017-06-23 12:00] VITALS: BP 136/67
--- NOTE | 2017-06-23 12:31 | NUR ---
Pt has several areas noted to BLE that are in various stages of healing. Areas are red in color. No drainage noted. Areas are dry. Wound Care Recommendation Aquaphor daily to BLE after cleansing area with soap and water.
--- NOTE | 2017-06-23 13:28 | NUR ---
CHANG FOR 10/10 BACK PAIN
--- NOTE | 2017-06-23 15:39 | NUR ---
PHYSICAL THERAPY PAtient evaluated in [facility], full evaluation to follow. Continue with PT as per plan of care with fall, mod (A) and 02 precautions. Significant acute debility- refuses SNF. Home with 24/7 family assist amnd complete home health serives. PAtient is moderate compelxity via chart review, tests and evaLuation:[id number]. Thank you for this referral. Veena Tam,PT
[2017-06-23 16:00] VITALS: BP 136/51
--- NOTE | 2017-06-23 16:01 | NUR ---
PT STATES BACK PAIN RELIEVED
--- NOTE | 2017-06-23 16:03 | NUR ---
Occupational Therapy evaluation completed this date in [facility] with full eval to follow. Precautions include fall risk, SOB w/ min exertion, w/c use in the home, O2 dependency, assisted w/ ADLs MEDICAL IMAGING TECHNICIAN, moderate complexity level 32507. Recommend OT per POC and SNF upon d/c. However, patient refuses SNF and insists upon d/c to home with elderly with home health OT,PT,SN recommended. Thank you for this referral. Lesly Villa OTR/L
--- NOTE | 2017-06-23 17:57 | NUR ---
INSULIN COVERAGE, POATSSIUM,CALCIUM AND IV LASXI GIVEN BUT CAN NOT DOCUMENT COMPUTER JOB IS FROZEN, IT CALLED
[2017-06-23 20:00] VITALS: BP 146/56
--- NOTE | 2017-06-23 20:52 | NUR ---
PT. RESTING I NBED. HEP LOCK IN RAN AND LH ASYMPT. LUNGS DIMINISHED BILAT, PULSE OX 99% ON 3L NC. ABDOME SOFTLY DISTENDED AND NORMO, OBESE. 1-2+BLE. LEFT LOWER LEG HAS OPEN BLISTERED AREAS NOTED. KRISTEN MAGANA, RN
--- NOTE | 2017-06-23 23:05 | NUR ---
PT REFUSED TO WEAR BIPAP
--- NOTE | 2017-06-23 23:48 | NUR ---
NORCO GIVEN FOR COMPLAINTS OF BACK PAIN . RATED #10 ON PAIN SCALE.
[2017-06-24] VITALS: BP 121/77
--- NOTE | 2017-06-24 00:22 | NUR ---
PT. STATED NORCO WAS EFFECTIVE.
--- NOTE | 2017-06-24 03:56 | NUR ---
PATIENT C/O BACK PAIN WHICH IS CHRONIC. MEDICATED WITH NORCO PER PRN ORDER. WILL CONTINUE TO MONITOR.
[2017-06-24 04:00] VITALS: BP 120/64
[2017-06-24 04:27] LABS: HEMATOCRIT 35.5 % (37.0-47.0); HEMOGLOBIN 11.1 g/dl (12.0-16.0); LYMPH # 0.5 10*3/uL (1.3-4.4); LYMPH % 6.6 % (27.0-41.0); MEAN CELL VOLUME 91.5 fl (81.0-99.0); MEAN CORPUSCULAR HGB 28.6 pg (27.0-31.0); MEAN CORPUSCULAR HGB CONC 31.3 g/dl (33.0-37.0); MEAN PLATELET VOLUME 11.8 fl (9.6-12.3); MONO # 0.3 10*3/uL (0.1-1.0); MONO % 3.5 % (3.0-9.0); NEUT # 7.2 10*3/uL (2.3-7.9); NEUT % 89.2 % (47.0-73.0); PLATELET COUNT AUTOMATED 186 10*3/uL (130-400); RED BLOOD COUNT 3.88 10*6/uL (4.10-5.10); RED CELL DISTRI WIDTH 13.1 % (0-14.5); WHITE BLOOD COUNT 8.1 10*3/uL (4.8-10.8)
[2017-06-24 04:59] LABS: BUN 17 mg/dl (7-24); CHLORIDE 91 mmol/L (98-107); CREATININE 0.85 mg/dL (0.55-1.02); PHOSPHOROUS 1.7 mg/dL (2.5-4.9); POTASSIUM 4.1 mmol/L (3.5-5.1); SODIUM 134 mmol/L (136-145)
[2017-06-24 08:00] VITALS: BP 127/67
--- NOTE | 2017-06-24 09:00 | NUR ---
Granulator Tender in to talk to patient. Patient states lives at home with boyfriend. There are few steps in the home. Physician: [facility] Home health services: none Patient's level of ADLs: MINIMAL ASSIST Patient has working utilities: all working DME: [employer], [employer] Follow-up physician's appointment after d/c: will be made by hospitalist nurse director upon discharge Does patient want to access PORTAL?: no Discharge plan discussed with patient, patient is living home with her boyfriend, she states she gets around ok, discussed with her physical therapys recommendation of a short term assisted, patient stated she had been at a SNF before and didn't want to go back, also discussed with her VNA, she also refused this, case management asked patient to at least consider a SNf or vna, that she would need something post discharge, patient stated she would consider these options, case management will follow. KRISTEN ASIF
--- NOTE | 2017-06-24 09:47 | NUR ---
PATIENT C/O CHRONIC BACK PAIN. REQUESTING NORCO. MEDICATED PER PRN ORDER. WILL CONTINUE TO MONITOR.
--- NOTE | 2017-06-24 10:53 | NUR ---
PHYSICAL THERAPY Patient seen this am 1:1 for therapy and was supine in bed upon therapist arrival with continuous O2-3L and IV treatment. Patient reports no c/o's pain and transfers sup to sit EOB with CGA x 1. Patient tolerated > 5 minutes static sit with Supervision, followed by sit to stand, SEMICONDUCTOR TECHNICIAN/CGA, tolerating < 1 minute standing tolerance prior to quick onset of fatigue. Patient completed treatment with multiple sit to stand transfers CGA with SpO2 and heart rate monitored throughout entire session and remained WFL's. Patient returned to supine in bed and remained with call light, telephone and tray table. Total treatment time 24 minutes and will continue per POC to improve functional mobility and tranfers with increased activity tolerated. [place], PRODUCTION LINE ASSEMBLER
[2017-06-24 12:00] VITALS: BP 144/72
[2017-06-24 16:00] VITALS: BP 129/60
--- NOTE | 2017-06-24 19:25 | NUR ---
PATIENT MEDICATED WITH PRN NORCO FOR C/O BACK PAIN RATED 10/10 ON A 0/10 PAIN SCALE. WILL CONTINUE TO MONITOR. BED IN LOWEST POSITION, CALL LIGHT IN REACH
[2017-06-24 20:00] VITALS: BP 142/90
--- NOTE | 2017-06-24 23:38 | NUR ---
MEDICATED WITH PRN NORCO FOR C/O BACK PAIN. RATES 07/22. WILL MONITOR FOR EFFECTIVENESS.
[2017-06-25] VITALS: BP 145/76
--- NOTE | 2017-06-25 02:15 | NUR ---
PATIENT RESTING IN BED WITH EYES CLOSED. NO S/S OF DISTRESS. BED IN LOWEST POSITION, CALL LIGHT IN REACH
[2017-06-25 07:01] LABS: BASO % 0.1 % (0.0-1.0); HEMATOCRIT 36.9 % (37.0-47.0); HEMOGLOBIN 11.7 g/dl (12.0-16.0); LYMPH # 0.7 10*3/uL (1.3-4.4); LYMPH % 8.9 % (27.0-41.0); MEAN CELL VOLUME 92.9 fl (81.0-99.0); MEAN CORPUSCULAR HGB 29.5 pg (27.0-31.0); MEAN CORPUSCULAR HGB CONC 31.7 g/dl (33.0-37.0); MEAN PLATELET VOLUME 11.3 fl (9.6-12.3); MONO # 0.4 10*3/uL (0.1-1.0); MONO % 5.1 % (3.0-9.0); PLATELET COUNT AUTOMATED 210 10*3/uL (130-400); RED BLOOD COUNT 3.97 10*6/uL (4.10-5.10); WHITE BLOOD COUNT 8.2 10*3/uL (4.8-10.8)
[2017-06-25 07:31] LABS: BUN 20 mg/dl (7-24); CHLORIDE 89 mmol/L (98-107); CREATININE 0.85 mg/dL (0.55-1.02); PHOSPHOROUS 3.1 mg/dL (2.5-4.9); POTASSIUM 4.5 mmol/L (3.5-5.1); SODIUM 134 mmol/L (136-145)
--- NOTE | 2017-06-25 07:48 | NUR ---
MEDICATED WITH PRN PO NORCO FOR C/O LOWER BACK PAIN.
[2017-06-25 08:00] VITALS: BP 154/74
--- NOTE | 2017-06-25 09:38 | NUR ---
case management visits with patient, again discussed with her physical therapy recommendation for SNF, patient refused, stated she didn't feel she needed this, also discussed with her VNA and she again refused, educated her on the services of VNA and that she needed physical therapy and they could provide this at home, patient stated her boyfriend and her uncle are at home and can help her. case management will follow
--- NOTE | 2017-06-25 10:44 | NUR ---
PHYSICAL THERAPY Mrs Murphy seen this AM 1:1 for her therapy session and talked into her treatment for up and standing. Transfer supine/sit MIN A X 1, sitting balance once up supervision X 1, X 6 min sitting. Followed by sit/stand, standing balance to tolerance with MOD WARPING MILL OPERATOR X 1, with sitting rest after each stand. Followed by up and short gait to bedside chair 6-7 steps, pivot and stand to tolerance, and sit. Went over safety with transfers, standing balance, Pt with call light. HECTOR HOOPER PAPER BAG PRESS OPERATOR.
--- NOTE | 2017-06-25 11:06 | NUR ---
PRN PO NORCO NOT EFFECTIVE FOR BACK PAIN FOR VERY LONG, PER PATIENT. SHE IS REQUESTING ADDITIONAL DOSE AT NEXT AVAILABLE INTERVAL.
--- NOTE | 2017-06-25 11:33 | NUR ---
MEDICATED WITH PRN PO NORCO FOR BACK PAIN.
[2017-06-25 12:00] VITALS: BP 150/87
--- NOTE | 2017-06-25 12:36 | NUR ---
PRN PO NORCO SOMEWHAT EFFECITIVE, PER PATIENT.
--- NOTE | 2017-06-25 15:34 | NUR ---
MEDICATED WITH PRN PO NORCO FOR BACK PAIN.
[2017-06-25 16:00] VITALS: BP 147/86
--- NOTE | 2017-06-25 18:01 | NUR ---
PRN PO NORCO EFFECTIVE, PER PATIENT.
--- NOTE | 2017-06-25 19:40 | NUR ---
MEDICATED WITH PRN PO NORCO FOR BACK PAIN.
[2017-06-25 20:00] VITALS: BP 157/87
--- NOTE | 2017-06-25 23:30 | NUR ---
PRN NORCO GIVEN FOR PT COMPLAINTS OF LOWER BACK PAIN RATING IT A 10/10. CALL LIGHT WITHIN REACH, WILL MONITOR
[2017-06-26] VITALS: BP 150/90
[2017-06-26 00:04] LABS: ADENOVIRUS Negative (Negative); INFLUENZA A Negative (Negative); INFLUENZA B Negative (Negative); METAPNEUMOVIRUS Negative (Negative); PARAINFLUENZA 1 Negative (Negative); PARAINFLUENZA 2 Negative (Negative); PARAINFLUENZA 3 Negative (Negative); RHINOVIRUS Negative (Negative); RSV A Negative (Negative); RSV B Negative (Negative)
--- NOTE | 2017-06-26 00:30 | NUR ---
PRN NORCO APPEARS EFFECTIVE, PT SLEEPING
--- NOTE | 2017-06-26 02:29 | NUR ---
24 HR chart check completed.
--- NOTE | 2017-06-26 04:39 | NUR ---
PRN NORCO GIVEN FOR PT COMPLAINTS OF 10/10 BACK PAIN. CALL LIGHT WITHIN REACH, WILL MONITOR
[2017-06-26 07:24] LABS: BUN 23 mg/dl (7-24); CHLORIDE 90 mmol/L (98-107); CREATININE 0.89 mg/dL (0.55-1.02); POTASSIUM 4.5 mmol/L (3.5-5.1); SODIUM 135 mmol/L (136-145)
[2017-06-26 08:00] VITALS: BP 152/81
--- NOTE | 2017-06-26 09:00 | NUR ---
case management visits with patient, patient continues to refuse home health, no other needs at this time
[2017-06-26] MEDS ORDERED: PREDNISONE10 MG PO (10:32)
[2017-06-26] MEDS ORDERED: LASIX20 MG PO (10:32)
[2017-06-26] MEDS ORDERED: DOXYCYCLINE HY100 M3 PO (10:32)
[2017-06-26 12:00] VITALS: BP 153/75
--- NOTE | 2017-06-26 12:51 | NUR ---
PATIENT DISCHARGED HOME WILL FOLOW UP WITH DR ANN IN ONE WEEK. LEFT FLOOR WITH SPOUSE. IV REMOVED COMPUTER COMPOSITOR REMOVED
--- NOTE | 2017-06-26 12:57 | NUR ---
PHYSICAL THERAPY Laura seen this AM for her therapy treatment. Pt said that she is being D/C to home this afternoon. Pt having family members in her room at this time and did not want any therapy today. HECTOR HOOPER ADMINISTRATIVE SUPERVISOR.
--- NOTE | 2017-06-26 15:02 | NUR ---
PHYSICAL THERAPY CO-SIGN I approve of the Phyical Therapy notes written above. WILBERT ZIMMERMAN PT
== END 2017-06-26 12:51 | disposition home or self-care (01) | DRG 871 ==
LOC: ED 00:12 → ICCU 02:44 → EDHOLD 02:44 → ICCU 07:31 → 4E 06-24 13:41
PROVIDERS: Emergency Medicine Emergency Medical Services; Internal Medicine; Internal Medicine Critical Care Medicine; Student in an Organized Health Care Education/Training Program; ADMIT Internal Medicine
PROC: 5A09357 Assistance with Respiratory Ventilation, Less than 24 Consecutive Hours, Continuous Positive Airway Pressure (ICD-10-PCS; principal; 2017-06-22)
DX: A41.9 Sepsis, unspecified organism (principal); I50.33 Acute on chronic diastolic (congestive) heart failure; J96.21 Acute and chronic respiratory failure with hypoxia; E43 Unspecified severe protein-calorie malnutrition; G93.41 Metabolic encephalopathy; J18.9 Pneumonia, unspecified organism; K50.119 Crohn's disease of large intestine with unspecified complications; E87.8 Other disorders of electrolyte and fluid balance, not elsewhere classified; I11.0 Hypertensive heart disease with heart failure; J96.22 Acute and chronic respiratory failure with hypercapnia; J44.1 Chronic obstructive pulmonary disease with (acute) exacerbation; J44.0 Chronic obstructive pulmonary disease with (acute) lower respiratory infection; Z68.42 Body mass index [BMI] 45.0-49.9, adult; R65.20 Severe sepsis without septic shock; W18.39XA Other fall on same level, initial encounter; M25.571 Pain in right ankle and joints of right foot; D64.9 Anemia, unspecified; E87.6 Hypokalemia; F32.9 Major depressive disorder, single episode, unspecified; F41.9 Anxiety disorder, unspecified; E66.01 Morbid (severe) obesity due to excess calories; E78.5 Hyperlipidemia, unspecified; M19.90 Unspecified osteoarthritis, unspecified site; I27.2 Other secondary pulmonary hypertension; Z96.653 Presence of artificial knee joint, bilateral; F17.200 Nicotine dependence, unspecified, uncomplicated; R10.9 Unspecified abdominal pain; M54.9 Dorsalgia, unspecified; K57.90 Diverticulosis of intestine, part unspecified, without perforation or abscess without bleeding; J20.9 Acute bronchitis, unspecified; E11.65 Type 2 diabetes mellitus with hyperglycemia; G89.4 Chronic pain syndrome; E83.39 Other disorders of phosphorus metabolism; R91.8 Other nonspecific abnormal finding of lung field; I48.91 Unspecified atrial fibrillation; E87.5 Hyperkalemia; Z99.3 Dependence on wheelchair; Z88.1 Allergy status to other antibiotic agents; Z88.6 Allergy status to analgesic agent; Z88.8 Allergy status to other drugs, medicaments and biological substances; Z91.041 Radiographic dye allergy status; Y93.89 Activity, other specified; Z99.81 Dependence on supplemental oxygen; Y99.8 Other external cause status; Z79.4 Long term (current) use of insulin; Y92.099 Unspecified place in other non-institutional residence as the place of occurrence of the external cause; Z79.2 Long term (current) use of antibiotics; Z79.899 Other long term (current) drug therapy; Z85.41 Personal history of malignant neoplasm of cervix uteri; Z87.81 Personal history of (healed) traumatic fracture; Z90.49 Acquired absence of other specified parts of digestive tract; Z90.710 Acquired absence of both cervix and uterus; Z90.722 Acquired absence of ovaries, bilateral; Z80.1 Family history of malignant neoplasm of trachea, bronchus and lung; Z80.8 Family history of malignant neoplasm of other organs or systems; Z82.49 Family history of ischemic heart disease and other diseases of the circulatory system; Z83.3 Family history of diabetes mellitus; Z71.6 Tobacco abuse counseling

== ENCOUNTER 2017-08-02 15:13 | Emergency (ER) | payer OTHER ==
[~2017-08-02] VITALS: Ht 162.5 cm; Wt 108.9 kg
[~2017-08-02 15:13] MED LIST changes: +DOXYCYCLINE HY100 M3 PO; +NORVASC5 MG PO; +SYMBICORT INH; +VALIUM5 MG PO
[2017-08-02 15:29] VITALS: BP 161/106
[2017-08-02 16:13] LABS: BASO % 0.3 % (0.0-1.0); EOS # 0.1 10*3/uL (0.0-0.4); EOS % 0.9 % (1.0-4.0); HEMOGLOBIN 14.7 g/dl (12.0-16.0); LYMPH # 1.9 10*3/uL (1.3-4.4); MEAN CELL VOLUME 86.9 fl (81.0-99.0); MEAN CORPUSCULAR HGB 28.4 pg (27.0-31.0); MEAN CORPUSCULAR HGB CONC 32.7 g/dl (33.0-37.0); MEAN PLATELET VOLUME 10.5 fl (9.6-12.3); MONO # 0.6 10*3/uL (0.1-1.0); MONO % 5.4 % (3.0-9.0); NEUT # 7.8 10*3/uL (2.3-7.9); NEUT % 74.9 % (47.0-73.0); PLATELET COUNT AUTOMATED 187 10*3/uL (130-400); RED BLOOD COUNT 5.18 10*6/uL (4.10-5.10); RED CELL DISTRI WIDTH 13.4 % (0-14.5); WHITE BLOOD COUNT 10.4 10*3/uL (4.8-10.8)
[2017-08-02 16:31] LABS: ALBUMIN 3.7 gm/dl (3.1-4.5); ALKALINE PHOSPHATASE 122 U/L (45-117); BUN 9 mg/dl (7-24); CHLORIDE 97 mmol/L (98-107); POTASSIUM 3.9 mmol/L (3.5-5.1); SGOT/AST 20 IU/L (3-35); SGPT/ALT 17 U/L (12-78); SODIUM 137 mmol/L (136-145); TOTAL PROTEIN 7.3 gm/dL (6.4-8.2)
[2017-08-02 16:36] LABS: TROPONIN I < 0.015 ng/ml (<0.045)
[2017-08-02] MEDS ORDERED: CLINDAMYCIN150 MG PO (17:16)
== END 2017-08-02 17:18 | disposition home or self-care (01) ==
LOC: ED 15:13
PROVIDERS: Emergency Medicine
DX: G89.29 Other chronic pain (principal); K02.9 Dental caries, unspecified; Z87.891 Personal history of nicotine dependence; Z90.49 Acquired absence of other specified parts of digestive tract; Z96.653 Presence of artificial knee joint, bilateral; J44.9 Chronic obstructive pulmonary disease, unspecified; F41.9 Anxiety disorder, unspecified; Z88.8 Allergy status to other drugs, medicaments and biological substances; Z88.1 Allergy status to other antibiotic agents; Z91.041 Radiographic dye allergy status